=== PATIENT | male | born 1945 | race Caucasian/White ===

== ENCOUNTER → 2017-08-07 | Outpatient (CLI) | payer BC, OTHER ==
[~2017-08-07] VITALS: Ht 190.5 cm; Wt 106.6 kg
[~2017-08-07] MED LIST: ASPIR 8181 MG PO; CENTRUM SILVER1 EAC4 PO; LISINOPRIL20 MG PO; MAGOX 400400 MG PO; METFORMIN HCL500 MG PO; PIOGLITAZONE15 MG; PROTONIX40 M1 PO; SIMVASTATIN40 MG PO; TOPROL XL25 MG PO; VICTOZA0.6 MG/0.1 SUBQ; VITAMIN B-12500 MCG PO; VITAMIN D1000 UNI1 PO
--- NOTE | ~2017-08-07 | O ---
[facility] [address] [facility] [employer] [place] [address] OPERATIVE REPORT Name: NESSA IVY Room #: REG [facility] Renan#: [id number] Admission: 08/07/17 Attend Phys: Vinay Munroe MD, Discharge: Date of : 47 Report #: [id number] THIS REPORT FOR: //name// CC: JOSUE Munroe DATE OF SERVICE: 08/07/2017 PREOPERATIVE DIAGNOSES: 1. Gastroesophageal reflux disease. 2. Diabetes mellitus. 3. Hypercholesterolemia. 4. Hypertension. 5. Chronic cough. POSTOPERATIVE DIAGNOSES: 1. Gastroesophageal reflux disease. 2. Diabetes mellitus. 3. Hypercholesterolemia. 4. Hypertension. 5. Chronic cough. 6. Moderate sized hiatal hernia. PROCEDURE PERFORMED: A thorough diagnostic esophagogastroduodenoscopy (EGD). SURGEON: Vinay Munroe M.D. SPORTS UMPIRE: None. ANESTHESIA: Monitored anesthesia care. ESTIMATED BLOOD LOSS: None. COMPLICATIONS: None. SPECIMENS: None. INDICATIONS: The patient is a 71-year-old male with a longstanding history of reflux disease and coughing that has been recalcitrant to maximal medical therapy. The patient has undergone a thorough ENT workup showing findings concerning for chronic reflux. The patient underwent an upper GI swallow that showed normal motility and then also underwent esophageal manometry testing, which confirmed normal motility and indication today was for EGD. DESCRIPTION OF PROCEDURE: After explaining the risks, benefits and alternatives of the procedure and obtaining consent, the patient was brought to the endoscopy [facility] [address] [place] [address] OPERATIVE REPORT Name: NESSA IVY Room #: REG LIZZY Ivis.#: [id number] Admission: 08/07/17 Attend Phys: Vinay Munroe MD, Discharge: Date of : 47 Report #: [id number] suite supine on the hospital bed. After conducting a thorough timeout procedure verifying correct patient and procedure, the patient was placed in the left lateral decubitus position and was administered monitored anesthesia care. Once adequate anesthesia was obtained, the [employer] upper endoscope was used to intubate the oropharynx and was traversed down into the esophagus with ease. This was advanced down a slightly tortuous esophagus, past the GE junction into the gastric lumen where the pylorus was identified and intubated. The scope was advanced to the second portion of the duodenum where a slow careful withdrawal of the EGD scope showed no evidence of duodenitis, gastritis, esophagitis, mass lesions or ulcerations. A retroflexion view of the scope within the gastric lumen did show moderate sized hiatal hernia. The scope was straightened out and withdrawn into the distal esophagus where there was evidence of a patulous lower esophageal sphincter. Photodocumentation of the hiatal hernia as well as a lower esophageal sphincter were taken and provided to the patient and the permanent medical record. The stomach was fully desufflated. The scope was gently withdrawn evaluating the esophagus in detail showing no evidence of Nelson's changes or any other pathology. The scope was then removed and passed off the field completing the procedure. At the end of the procedure, all instrument, needle and sponge counts were correct. The patient tolerated the procedure without incident, was awakened in the endoscopy suite and transitioned back to the recovery room in stable condition with no apparent complications. Final recommendations will be for him to undergo laparoscopic hiatal hernia repair with an antireflux procedure, most likely a LINX implantation. <ELECTRONICALLY SIGNED> By: Vinay Munroe MD, FACS 08/07/17 [id number] Vinay Munroe MD, FACS /nt
== END | disposition home or self-care (01) ==
LOC: GI 06:28
DX: K21.9 Gastro-esophageal reflux disease without esophagitis (principal); K44.9 Diaphragmatic hernia without obstruction or gangrene; E11.9 Type 2 diabetes mellitus without complications; I10 Essential (primary) hypertension; E78.00 Pure hypercholesterolemia, unspecified; R05 Cough; G89.29 Other chronic pain; Z87.442 Personal history of urinary calculi; Z87.891 Personal history of nicotine dependence; Z98.890 Other specified postprocedural states; Z96.641 Presence of right artificial hip joint; Z79.899 Other long term (current) drug therapy; Z88.2 Allergy status to sulfonamides; Z88.6 Allergy status to analgesic agent; Z79.82 Long term (current) use of aspirin
CPT/HCPCS: 62110; 62900

== ENCOUNTER → 2018-04-27 | Outpatient (CLI) | payer BC, OTHER | LOC: RAD 07:27 | DX: R13.10 Dysphagia, unspecified (principal) ==